=== PATIENT | male | born 1990 | race Caucasian/White ===

== ENCOUNTER 2016-09-21 22:16 | Emergency (ER) | payer BC, OTHER ==
[~2016-09-21] VITALS: Ht 177.8 cm; Wt 63.6 kg
[2016-09-21 22:23] VITALS: TEMP 97.8
[2016-09-22 00:15] LABS: BASO # 0.1 (0.0-0.2); BASO % 0.8 % (0.0-2.0); EOS # 0.4 (0.0-0.7); EOS % 4.7 % (0-4.0); GRAN # 4.2 (1.4-6.5); GRAN % 47.3 % (42.2-75.2); HEMATOCRIT 42.2 % (42.0-52.0); HEMOGLOBIN 14.7 g/dl (13.5-18.0); LYMPH # 3.1 (1.2-3.4); LYMPH % 35.6 % (20.0-51.0); MEAN CELL VOLUME 91 fl (80.0-100.0); MEAN CORPUSCULAR HEMOGLOBIN 32 pg (27.0-31.0); MEAN CORPUSCULAR HGB CONC 35 g/dl (33.0-37.0); MEAN PLATELET VOLUME 10.6 fl (7.4-10.4); MONO % 11.3 % (1.7-9.3); PLATELET COUNT 266 K/mm3 (130-400); RED BLOOD COUNT 4.66 M/mm3 (4.20-5.60); REDCELL DISTRIBUTION WIDTH-CV 12.4 % (11.5-14.5); WHITE BLOOD COUNT 8.8 K/mm3 (4.8-10.8)
[2016-09-22 00:24] LABS: ANION GAP 12 mmol/L (7-16); BLOOD UREA NITROGEN 16 mg/dL (9-20); CARBON DIOXIDE 31 mmol/L (22-30); CHLORIDE 99 mmol/L (98-107); CREATININE, serum 1.11 mg/dL (0.66-1.25); GLUCOSE 95 mg/dL (74-106); POTASSIUM 4.6 mmol/L (3.4-5.0); SODIUM 142 mmol/L (137-145)
[2016-09-22 00:36] LABS: B-TYPE NATRIURETIC PEPTIDE 14 pg/mL (0-125)
[2016-09-22 00:37] LABS: TROPONIN-I < 0.012 ng/mL (0.000-0.034)
[2016-09-22 01:16] VITALS: BP 126/83; PULSE 65
[2016-09-22] MEDS ORDERED: VALIUM 5MG T5 MG/TAB PO (01:18)
== END 2016-09-22 01:44 | disposition home or self-care (01) ==
LOC: COL.ER 22:16
PROVIDERS: Emergency Medicine
DX: R00.2 Palpitations (principal); R07.9 Chest pain, unspecified

== ENCOUNTER 2020-08-28 10:21 | Emergency (ER) | payer OTHER ==
[~2020-08-28] VITALS: Ht 177.8 cm; Wt 77.3 kg
[~2020-08-28 10:21] MED LIST: PREDNISONE20 MG PO; VALIUM 5MG T5 MG/TAB PO
[2020-08-28 10:36] VITALS: TEMP 97.5
[2020-08-28] MEDS ORDERED: LIDODERM 5% PATC1 EA TP ×2 (11:46)
[2020-08-28] MEDS ORDERED: FLEXERIL 1010 MG/TAB PO ×2 (11:46)
[2020-08-28] MEDS ORDERED: MEDROL 4MG DOSPA4 MG PO ×2 (11:47)
[2020-08-28 11:54] LABS: PROTHROMBIN TIME 11.4 SECONDS (9.7-12.8)
[2020-08-28 11:57] LABS: ALBUMIN 4.4 gm/dL (3.5-5.0); BILIRUBIN,TOTAL 0.7 mg/dL (0.0-1.0); CALCIUM 9.4 mg/dL (8.4-10.2); CREATININE, serum 1.12 (0.66-1.25); POTASSIUM 4.5 mmol/L (3.4-5.0); TOTAL PROTEIN 7.3 gm/dL (6.4-8.2)
[2020-08-28 11:59] LABS: HEMATOCRIT 42.6 % (42.0-52.0); HEMOGLOBIN 14.7 g/dl (13.5-18.0); MEAN CELL VOLUME 95 fl (80.0-100.0); MEAN CORPUSCULAR HEMOGLOBIN 33 pg (27.0-31.0); MEAN CORPUSCULAR HGB CONC 35 g/dl (33.0-37.0); MEAN PLATELET VOLUME 10.2 fl (7.4-10.4); PLATELET COUNT 270 K/mm3 (130-400); RED BLOOD COUNT 4.49 M/mm3 (4.20-5.60); REDCELL DISTRIBUTION WIDTH-CV 13.2 % (11.5-14.5)
[2020-08-28 12:31] LABS: BAND 8 % (0-10); EOSINOPHIL 4 % (0-4); LYMPHOCYTE 33 % (20.0-51.0); NEUTROPHILS 50 % (42.0-75.2); PLATELET ESTIMATE NORMAL (NORMAL)
[2020-08-28 12:35] VITALS: BP 140/90; PULSE 80
== END 2020-08-28 12:38 | disposition home or self-care (01) ==
LOC: COL.ER 10:21
PROVIDERS: Physician Assistant
DX: G43.109 Migraine with aura, not intractable, without status migrainosus (principal)
CPT/HCPCS: J1200; J1885; J2765; J7030